=== PATIENT | female | born 1970 | race American Indian/Alaskan Native ===

== ENCOUNTER 2016-07-25 07:59 | Outpatient (CLI) | payer BC ==
--- NOTE | 2016-07-25 08:55 | Ultrasound Report ---
RENAL ULTRASOUND: 07/25/16 CLINICAL: Recurrent nephrolithiasis. FINDINGS: High resolution ultrasound demonstrated normal sized kidneys with normal echogenicity. The right kidney measures 13.1 x 5.2 x 5.4-cm. The renal parenchyma measures 1.4-cm in thickness.The left kidney measures 11.4 x 6.1 x 5.1-cm. The renal parenchyma measures 1.4-cm in thickness. Mild bilateral hydronephrosis with no hydroureter. A right lower pole renal calculus measures 6 mm and a left lower pole renal calculus measures 16 mm. Normal urinary bladder. Incidentally, a solid left adnexal mass measures 5.5 x 4.1 x 4.9 cm. IMPRESSION: 1. Bilateral nonobstructive lower pole renal calculi. 2. Mild bilateral hydronephrosis but no hydroureter to suggest an obstructing ureteral calculus. 3. A 5.5 cm left pelvic mass. Recommend transabdominal and transvaginal pelvic ultrasound for further evaluation of the pelvis.
== END 2016-07-25 08:00 | disposition home or self-care (01) ==
LOC: SPVWC 07:59
PROVIDERS: ATTEND Internal Medicine
DX: N20.0 Calculus of kidney (principal); N20.1 Calculus of ureter; N13.30 Unspecified hydronephrosis; R19.00 Intra-abdominal and pelvic swelling, mass and lump, unspecified site
CPT/HCPCS: 76770